=== PATIENT | male | born 1975 | race American Indian/Alaskan Native ===

== ENCOUNTER 2016-08-02 14:32 | Emergency (ER) | payer MEDICARE ==
[2016-08-02 14:44] VITALS: BP 152/99
--- NOTE | 2016-08-02 16:38 | Emergency Department Report ---
HPI - General Chief Complaint: Upper Respiratory Infection Time Seen by Provider: 08/02/16 16:22 - HPI HPI: 40-year-old -Ben[place] male with no past medical history comes in with complaint of sore throat off and on for 5 days chest congestion runny nose and sneezing. Reports chest and throat hurts worse when he coughs. Cough is worse at night. He reports he has been taken the Tylenol sinus and Delsym for the cough. Without relief. He admits to fever 5 days ago but that has ceased. ED Past Medical Hx - Past Medical History Previous Medical History?: No - Social History Smoking Status: Current Some Day Smoker - Medications Home Medications: Home Medications Medication Instructions Recorded Confirmed Last Taken Type Loratadine [Claritin] 10 mg PO DAILY #30 tablet 08/02/16 Unknown Rx Promethazine /Codeine 5 ml PO Q6H PRN #150 ml 08/02/16 Unknown Rx [Phenergan/Codeine 6.25-10 mg/5 ml] ED Review of Systems ROS: Stated complaint: SORE THROAT/ CONGESTION/ FLU SYM Other details as noted in HPI Constitutional: fever ENT: throat pain Respiratory: cough Cardiovascular: chest pain (worst with cough) Genitourinary: denies: urgency, dysuria Physical Exam - Physical Exam Vital Signs: Vital Signs 08/02/16 14:38 Temperature 98.2 F Pulse Rate 80 Respiratory 20 Rate Blood Pressure 152/99 O2 Sat by Pulse 100 Oximetry Physical Exam: GENERAL: Alert and oriented x3, no apparent distress, Normal Gait, atraumatic. HEAD: Head is normocephalic and a-traumatic. EYES: Extra ocular muscles are intact. Pupils are equal, round, and reactive to light and accommodation. EARS: symetrical, atraumatic, non tender, ear canal clear and moderate cerumen, tympanic membrance non inflamed. gross auditory nml bilaterally. NOSE: Nose symetrical, Nontender,Nares appeared normal. MOUTH:Mouth is well hydrated and without lesions. Tonsils nonerythematous or swollen, Uvula midline, Tongue not elevated. Mucous membranes are moist. Posterior pharynx clear, no exudate or lesions. Patent airways. Postnasal drip NECK: Supple. Non edematous, No carotid bruits. No lymphadenopathy or thyromegaly. LUNGS: Symetrical with respiration, No wheezing, no rales or crackles, CTAB. HEART: S1, S2 present, regular rate and rhythm without murmur, no rubs, no gallops. ABDOMEN: No organomegaly was noted,Positive bowel sounds, soft, and non- distended. . Nontender to palpation on all Quadrants, NO CVA tenderness. EXTREMITIES/MUSCULOSKELETAL: No cyanosis, clubbing, rash, lesions or edema. Full ROM bilaterally. UE/LE Pulses 2+ bilaterally. LE and UE 5+ strength bilaterally NEUROLOGIC: No focal Deficit, Cranial nerves II through XII are grossly intact. No loss of sensation, No facial droop, Negative rhomberg. PSYCHIATRIC: Mood is congruent with affect, denies suicidal or homicidal ideations. SKIN: Warm and dry, No lesions, No ulceration or induration present ED Course Vital Signs 08/02/16 14:38 Temperature 98.2 F Pulse Rate 80 Respiratory 20 Rate Blood Pressure 152/99 O2 Sat by Pulse 100 Oximetry ED Medical Decision Making - Medical Decision Making Patient evaluated by this provider in fast track. Discussed with patient's most likely allergies considering he is sneezing coughing and runny nose. Patient verbally understands that. Discussed with patient that we will discharge him on some cough medicine with codeine and Claritin. Patient verbalized understanding did discuss the patient not take the promethazine with codeine while driving or operating heavy machinery. Discuss with him to take meclizine with codeine at night and take [id number]-[id number] Robitussin. Patient is agreeable to verbalize understanding Critical care attestation.: If time is entered above; I have spent that time in minutes in the direct care of this critically ill patient, excluding procedure time. ED Disposition Clinical Impression: Environmental allergies Disposition: DISCHARGED TO HOME OR SELFCARE Is pt being admited?: No Does the pt Need Aspirin: No Condition: Stable Instructions: Allergies (ED) Additional Instructions: Days take promethazine with codeine at night for cough suppressant. Take Claritin on the day 10 mg one tablet by mouth daily. Do not operate heavy machinery or drive a car while on the promethazine with codeine. Recommended taking [id number] Robitussin drawn the day. If symptoms get worse or does not improve please follow-up to primary care provider. Prescriptions: Loratadine [Claritin] 10 mg PO DAILY #30 tablet Promethazine /Codeine [Phenergan/Codeine 6.25-10 mg/5 ml] 5 ml PO Q6H PRN #150 ml PRN Reason: cough Referrals: PRIMARY CARE, [Primary Care Provider] - 3-5 Days JAIME LEWIS MD [Staff Physician] - 3-5 Days Forms: Work/School Release Form(ED)
== END 2016-08-02 16:51 | disposition home or self-care (01) ==
LOC: ED 14:32
DX: J30.2 Other seasonal allergic rhinitis (principal); R05 Cough; F17.200 Nicotine dependence, unspecified, uncomplicated
CPT/HCPCS: 99282

== ENCOUNTER 2016-12-10 17:22 | Emergency (ER) | payer MEDICARE ==
[2016-12-10 23:28] VITALS: BP 134/95
--- NOTE | 2016-12-10 23:35 | Emergency Department Report ---
ED Back Pain/Injury HPI - General Chief Complaint: Back Pain/Injury Stated Complaint: LOW BACK PAIN Time Seen by Provider: 12/10/16 23:07 Source: patient Limitations: No Limitations - History of Present Illness Initial Comments: This is a 40-year-old male well-nourished with nontoxic or ill in appearance but presents to the ED complaining of chronic lower back pain that has increased in intensity 4 days ago. Patient stated he was diagnosed in 2007 with syphilis and received a spinal tap. Patient denies any complications spinal tap but stated dates is found to have been having lower back pain. Patient describes pain as aching with a level of 8 out of 10. Patient also states that pain is shooting down to left lower extremity. Patient denies any trauma. Patient stated that he was taking pain medication that was prescribed by his primary care doctor but has panic here that is stated he will no longer be able to prescribe any pain medication (narcotic). Patient denies any numbness, tingling, bladder or bowel stability, fever, chills, stiff neck, headache, blurry vision, chest pain or shortness of breath. Patient denies any allergies. Denies past medical history. Patient stated had several xray of back with normal findings. MD Complaint: back pain -: Gradual, days(s) (4) Similar Symptoms Previously: Yes (2007) Radiation: left leg Severity: mild Severity scale (0 -10): 8 Quality: aching Consistency: intermittent Improves With: none Worsens With: none Associated Symptoms: denies other symptoms. denies: confusion, weakness, chest pain, numbness, difficulty walking, cough, difficulty urinating, diaphoresis, incontinence, fever/chills, constipation, headaches, abdominal pain, loss of appetite, malaise, nausea/vomiting, rash, seizure, shortness of breath, syncope - Related Data Previous Rx's Medication Instructions Recorded Last Taken Type Loratadine [Claritin] 10 mg PO DAILY #30 tablet 08/02/16 Unknown Rx Promethazine /Codeine 5 ml PO Q6H PRN #150 ml 08/02/16 Unknown Rx [Phenergan/Codeine 6.25-10 mg/5 ml] Ibuprofen [Motrin 600 MG tab] 600 mg PO Q8H PRN #20 tablet 12/10/16 Unknown Rx predniSONE [Deltasone] 20 mg PO BID #10 tab 12/10/16 Unknown Rx Allergies Allergy/AdvReac Type Severity Reaction Status Date / Time No Known Allergies Allergy Unverified 08/02/16 14:37 ED Review of Systems ROS: Stated complaint: LOW BACK PAIN Other details as noted in HPI Constitutional: denies: chills, fever Eyes: denies: eye pain, eye discharge, vision change ENT: denies: ear pain, throat pain Respiratory: denies: cough, shortness of breath, wheezing Cardiovascular: denies: chest pain, palpitations Endocrine: no symptoms reported Gastrointestinal: denies: abdominal pain, nausea, diarrhea Genitourinary: denies: urgency, dysuria Musculoskeletal: denies: back pain, joint swelling, arthralgia Skin: denies: rash, lesions Neurological: denies: headache, weakness, paresthesias Psychiatric: denies: anxiety, depression Hematological/Lymphatic: denies: easy bleeding, easy bruising ED Past Medical Hx - Past Medical History Previous Medical History?: No - Surgical History Past Surgical History?: Yes Additional Surgical History: Back - Social History Smoking Status: Unknown if ever smoked Substance Use Type: None - Medications Home Medications: Home Medications Medication Instructions Recorded Confirmed Last Taken Type Loratadine [Claritin] 10 mg PO DAILY #30 tablet 08/02/16 Unknown Rx Promethazine /Codeine 5 ml PO Q6H PRN #150 ml 08/02/16 Unknown Rx [Phenergan/Codeine 6.25-10 mg/5 ml] Ibuprofen [Motrin 600 MG tab] 600 mg PO Q8H PRN #20 tablet 12/10/16 Unknown Rx predniSONE [Deltasone] 20 mg PO BID #10 tab 12/10/16 Unknown Rx ED Physical Exam - General Limitations: No Limitations General appearance: alert, in no apparent distress - Head Head exam: Present: atraumatic, normocephalic, normal inspection - Eye Eye exam: Present: normal appearance, PERRL, EOMI. Absent: scleral icterus, conjunctival injection, nystagmus, periorbital swelling, periorbital tenderness Pupils: Present: normal accommodation - ENT ENT exam: Present: normal exam, normal orophraynx, mucous membranes moist, TM's normal bilaterally, normal external ear exam - Neck Neck exam: Present: normal inspection, full ROM. Absent: tenderness, meningismus, lymphadenopathy, thyromegaly - Respiratory Respiratory exam: Present: normal lung sounds bilaterally. Absent: respiratory distress, wheezes, rales, rhonchi, stridor, chest wall tenderness, accessory muscle use, decreased breath sounds, prolonged expiratory - Cardiovascular Cardiovascular Exam: Present: regular rate, normal rhythm, normal heart sounds. Absent: bradycardia, tachycardia, irregular rhythm, systolic murmur, diastolic murmur, rubs, gallop - GI/Abdominal GI/Abdominal exam: Present: soft, normal bowel sounds. Absent: distended, tenderness, guarding, rebound, rigid, diminished bowel sounds - Rectal Rectal exam: Present: deferred - Extremities Exam Extremities exam: Present: normal inspection, full ROM, normal capillary refill. Absent: tenderness, pedal edema, joint swelling, calf tenderness - Back Exam Back exam: Present: normal inspection, full ROM. Absent: tenderness, CVA tenderness (R), CVA tenderness (L), muscle spasm, paraspinal tenderness, vertebral tenderness, rash noted - Expanded Back Exam Expanded Back exam: Present: normal rectal tone (as per pt). Absent: saddle anesthesia Back exam: Negative Straight Leg Raising: Left, Right - Neurological Exam Neurological exam: Present: alert, oriented X3, CN II-XII intact, normal gait, reflexes normal - Psychiatric Psychiatric exam: Present: normal affect, normal mood - Skin Skin exam: Present: warm, dry, intact, normal color. Absent: rash ED Course Vital Signs 12/10/16 12/10/16 17:36 23:27 Temperature 98.5 F Pulse Rate 79 77 Respiratory 18 16 Rate Blood Pressure 152/97 Blood Pressure 134/95 [Left] O2 Sat by Pulse 96 97 Oximetry - Reevaluation(s) Reevaluation #1: 12/10/16 23:35 Patient is speaking in full sentences with no signs of distress noted. ED Medical Decision Making - Medical Decision Making Ed course: This is a 40-year-old male that presents with lumbar strain 1- patient was examined by myself. Patient received solu-medrol 40mg in the ED. patient also received Toradol 60 mg IM. 2-patient received ibuprofen and prednisone at time of discharge. 3- patient was instructed to follow-up with his primary care doctor in 3-5 days or symptoms such as bladder or bowel instability, worsening of symptoms return to emergency room as was possible. 4- at time time of discharge, the patient does not seem toxic or ill in appearance. No acute signs of distress noted. Patient agrees to discharge treatment plan of care. No further questions noted by the patient. Critical care attestation.: If time is entered above; I have spent that time in minutes in the direct care of this critically ill patient, excluding procedure time. ED Disposition Clinical Impression: Low back strain Qualifiers: Encounter type: initial encounter Qualified Code(s): S39.012A - Strain of muscle, fascia and tendon of lower back, initial encounter Disposition: TO HOME OR SELFCARE Is pt being admited?: No Does the pt Need Aspirin: No Condition: Stable Instructions: Low Back Strain (ED), Ibuprofen (By mouth), Prednisone (By mouth) Additional Instructions: follow-up with your primary care doctor in 3-5 days or symptoms such as bladder or bowel instability, worsening of symptoms return to emergency room as was possible. Take full course of prednisone that was prescribed to. Prescriptions: Ibuprofen [Motrin 600 MG tab] 600 mg PO Q8H PRN #20 tablet PRN Reason: Pain predniSONE [Deltasone] 20 mg PO BID #10 tab Referrals: PRIMARY CAREMD [Primary Care Provider] - 3-5 Days DENIA GOULD MD [Staff Physician] - 3-5 Days [facility] [Outside] - 3-5 Days [facility] [Outside] - 3-5 Days Forms: Work/School Release Form(ED)
[2016-12-10] MEDS ORDERED: TORADOL IM ONE (23:39)
== END 2016-12-11 | disposition home or self-care (01) ==
LOC: ED 17:22
DX: S39.012A Strain of muscle, fascia and tendon of lower back, initial encounter (principal); X58.XXXA Exposure to other specified factors, initial encounter; Y93.89 Activity, other specified; Y99.9 Unspecified external cause status; Y92.89 Other specified places as the place of occurrence of the external cause
CPT/HCPCS: 96372; 99282; J1885; J2920

== ENCOUNTER 2019-05-11 16:13 | Emergency (ER) | payer MEDICARE ==
[2019-05-11 17:04] VITALS: BP 141/85
--- NOTE | 2019-05-11 20:29 | Emergency Department Report ---
ED General Adult HPI - General Chief complaint: Medical Clearance Stated complaint: MH/MEDICATION Time Seen by Provider: 05/11/19 19:41 Source: patient Mode of arrival: Ambulatory Limitations: No Limitations - History of Present Illness Initial comments: 43 -year-old -[place]ov[place] male patient with history of schizophrenia presents for medication refills on his Seroquel and Nexium times today. Patient states he ran out of his medications yesterday. He states his psychiatrist's will not see him for refills due to issues with payments from Medicaid. Patient states that he is compliant with his medications and denies any suicidal ideations, homicidal ideations, or hallucinations. - Related Data Previous Rx's Medication Instructions Recorded Last Taken Type Loratadine [Claritin] 10 mg PO DAILY #30 tablet 08/02/16 Unknown Rx Promethazine /Codeine 5 ml PO Q6H PRN #150 ml 08/02/16 Unknown Rx [Phenergan/Codeine 6.25-10 mg/5 ml] Ibuprofen [Motrin 600 MG tab] 600 mg PO Q8H PRN #20 tablet 12/10/16 Unknown Rx predniSONE [Deltasone] 20 mg PO BID #10 tab 12/10/16 Unknown Rx Esomeprazole Magnesium [NexIUM] 40 mg PO QDAY 30 Days #30 05/11/19 Unknown Rx capsule. Quetiapine Fumarate [SEROquel XR] 150 mg PO QDAY 30 Days #30 05/11/19 Unknown Rx tab.er.24h Allergies Allergy/AdvReac Type Severity Reaction Status Date / Time No Known Allergies Allergy Unverified 08/02/16 14:37 ED Review of Systems ROS: Stated complaint: MH/MEDICATION Other details as noted in HPI Comment: All other systems reviewed and negative ED Past Medical Hx - Past Medical History Previous Medical History?: Yes Hx Psychiatric Treatment: Yes (Schizophrenia) - Surgical History Past Surgical History?: Yes Additional Surgical History: Back - Social History Smoking Status: Current Some Day Smoker Substance Use Type: None - Medications Home Medications: Home Medications Medication Instructions Recorded Confirmed Last Taken Type Loratadine [Claritin] 10 mg PO DAILY #30 tablet 08/02/16 Unknown Rx Promethazine /Codeine 5 ml PO Q6H PRN #150 ml 08/02/16 Unknown Rx [Phenergan/Codeine 6.25-10 mg/5 ml] Ibuprofen [Motrin 600 MG tab] 600 mg PO Q8H PRN #20 tablet 12/10/16 Unknown Rx predniSONE [Deltasone] 20 mg PO BID #10 tab 12/10/16 Unknown Rx Esomeprazole Magnesium [NexIUM] 40 mg PO QDAY 30 Days #30 05/11/19 Unknown Rx capsule. Quetiapine Fumarate [SEROquel XR] 150 mg PO QDAY 30 Days #30 05/11/19 Unknown Rx tab.er.24h ED Physical Exam - General Limitations: No Limitations General appearance: alert, in no apparent distress - Head Head exam: Present: atraumatic, normocephalic - Eye Eye exam: Present: normal appearance. Absent: scleral icterus - Respiratory Respiratory exam: Present: normal lung sounds bilaterally. Absent: respiratory distress - Cardiovascular Cardiovascular Exam: Present: regular rate, normal rhythm. Absent: systolic murmur, diastolic murmur, rubs, gallop - Neurological Exam Neurological exam: Present: alert, oriented X3 - Psychiatric Psychiatric exam: Present: normal affect, normal mood. Absent: depressed, agitated, anxious, flat affect, manic, homicidal ideation, suicidal ideation ED Course Vital Signs 05/11/19 17:01 Temperature 98.5 F Pulse Rate 84 Respiratory 16 Rate Blood Pressure 141/85 O2 Sat by Pulse 98 Oximetry ED Medical Decision Making - Medical Decision Making 43-year-old male patient with history of schizophrenia is here today for medication refill of his Seroquel and Nexium. Patient is having issues seeing his psychiatrist due to Medicaid not paying for his visits. She denies any SI/HI or hallucinations. His mood and affect appear normal today. Patient given refills on his medications today. She informed to follow-up with his psychiatrist or a new psychiatrist for further medication refills. Critical care attestation.: If time is entered above; I have spent that time in minutes in the direct care of this critically ill patient, excluding procedure time. ED Disposition Clinical Impression: Medication refill Disposition: DC-01 TO HOME OR SELFCARE Is pt being admited?: No Condition: Stable Additional Instructions: Please follow-up with your psychiatrist for further medication refills Prescriptions: Esomeprazole Magnesium [NexIUM] 40 mg PO QDAY 30 Days #30 capsule. Quetiapine Fumarate [SEROquel XR] 150 mg PO QDAY 30 Days #30 tab.er.24h
== END 2019-05-11 20:36 | disposition home or self-care (01) ==
LOC: ED 16:13
DX: F20.9 Schizophrenia, unspecified (principal); F17.200 Nicotine dependence, unspecified, uncomplicated; Z76.0 Encounter for issue of repeat prescription; Z98.890 Other specified postprocedural states; Z79.1 Long term (current) use of non-steroidal anti-inflammatories (NSAID); Z79.899 Other long term (current) drug therapy
CPT/HCPCS: 99282

== ENCOUNTER 2019-09-03 20:08 | Emergency (ER) | payer MEDICARE ==
[2019-09-03 20:39] VITALS: BP 157/108
--- NOTE | 2019-09-03 20:53 | Emergency Department Report ---
Chief Complaint: Medical Clearance Stated Complaint: MED REFILL Time Seen by Provider: 09/03/19 20:46 - HPI History of Present Illness: pt is a 43 yo male who presents for a medication refill he has not seen psychiatrist in a year he states that he is out of his seroquel he states the last time he had it prescribed that it was from the ED on 05/2019 and was given a one month supply he has not had it since then no SI no HI no hallucinations he has not seen his PCP or a psychiatrist Patient is having no SI, no HI, no hallucinations Patient does not appear to be clinically having acute psychosis He appropriately responds to questions He is alert and oriented x4 will refer patient to the [facility] and was given a list of outpatient psych resources Patient also given a list of primary care physicians Discussed strict return precautions with patient Medical screening examination performed and there is no threat to life or limb at this time - Exam Vital Signs: Vital Signs 09/03/19 20:18 Temperature 98.4 F Pulse Rate 101 H Respiratory 20 Rate Blood Pressure 157/108 O2 Sat by Pulse 99 Oximetry MSE screening note: Focused history and physical exam performed. ED Disposition for MSE Clinical Impression: Encounter for medical screening examination Disposition: Z-07 MED SCREENING EXAM-LEFT Is pt being admited?: No Does the pt Need Aspirin: No Condition: Stable Additional Instructions: please follow up with a primary care doctor. please follow up with the [facility]. return to the emergency room immediately for any new or worsening symptoms. Referrals: [facility] [Outside] - 3-5 Days HIGINIO VALENTE MD [Staff Physician] - 3-5 Days [facility] [Outside] - 3-5 Days [facility] [Outside] - 3-5 Days [facility] [Provider Group] - 3-5 Days Time of Disposition: 20:50 Print Language: GREENLANDIC
== END 2019-09-03 21:01 | disposition left against medical advice (07) ==
LOC: ED 20:08
DX: F20.9 Schizophrenia, unspecified (principal); Z13.9 Encounter for screening, unspecified; Z76.0 Encounter for issue of repeat prescription
CPT/HCPCS: 99283